=== PATIENT | male | born 1975 | race Caucasian/White ===

== ENCOUNTER → 2016-09-02 | Outpatient (CLI) | payer BC ==
--- NOTE | 2016-09-02 12:55 | DI ---
SPECT/CT C-SPINE W/O CONTRAST,09/02/2016 9:15 AM: Clinical History: Cervical spondylosis Previous Exam: MRI cervical spine performed August 03, 2016 and MRI lumbar spine performed May 09, 2016 Radiopharmaceutical: 32.5 mCi of technetium 99m MDP were administered intravenously. Findings: Multiple CT images are obtained from the base of the skull to the mid thighs without contrast. These images are merged with SPECT images obtained from the base of the skull through the upper lower extre mities as well.. The SPECT images are obtained 2 hours after the administration of the radiopharmaceu tical. Skull base: The skull base is unremarkable. There is no abnormally increased activity within the skul l base. The paranasal sinuses are unremarkable. There are mild diffuse degenerative changes of the cervical spine. The glenohumeral joints and the acromioclavicular joints are unremarkable. The scapula is unremarkable. Motion artifact of the chest limits evaluation, but there is no evidence of infiltrate nor effusion. Visualized portions of the thyroid are unremarkable. The urinary bladder is unremarkable. The gallbladder, liver, spleen, pancreas and adrenals are unremarkable. The appendix is also unremarkable. Moderate stool seen throughout the colon. The pelvis and hips demonstrate no evidence of increased uptake. The cervical spine, thoracic spine and lumbar spine demonstrate no focal increased uptake. There is normal signal within the excreted urine. There is mild increased uptake within the posterior articulating facets of the lower lumbar spine whi ch are symmetric and most consistent with mild degenerative facet arthropathy. Impression: No focal area of intense increased uptake to explain cervicalgia or back pain.
== END ==
LOC: NM 07:21
PROVIDERS: ATTEND Physician Assistant
DX: M47.812 Spondylosis without myelopathy or radiculopathy, cervical region (principal); M47.816 Spondylosis without myelopathy or radiculopathy, lumbar region; M54.6 Pain in thoracic spine
CPT/HCPCS: 72125; 72128; 72131; A9503

== ENCOUNTER → 2016-09-30 | Outpatient (CLI) | payer BC ==
--- NOTE | 2016-10-02 22:34 | DI ---
MRI PELVIS W/WO JOANNA,09/30/2016 8:56 AM: Clinical History: Foraminal stenosis of the lumbosacral region Previous Exam: None at this facility. Findings: Multiplanar MR images are obtained through the lumbosacral region both before and after the intraveno us administration of 20 mL of OptiMARK. Images are obtained through the pelvis and the level of the m id thigh. The sacral plexus appears grossly normal and symmetric. There are small bilateral hydroceles. There is normal skeletal structures. There is no abnormal enhancement. The urinary bladder is unremarkable. There are mild degenerative changes of the posterior articulating facets. Impression: No visible abnormality within the sacral plexus bilaterally.
== END ==
LOC: MRI 08:48
PROVIDERS: ATTEND Neurological Surgery
DX: M48.07 Spinal stenosis, lumbosacral region (principal)
CPT/HCPCS: 72197; 73720; A9579

== ENCOUNTER → 2016-11-04 | Outpatient (CLI) | payer BC ==
[2016-11-04 14:08] LABS: BASOPHILS # (AUTO) 0.05 10*3/UL; BASOPHILS % (AUTO) 0.4 % (0-1); HEMATOCRIT 45.2 % (42.0-52.0); HEMOGLOBIN 15.7 g/dL (14.0-18.0); IMM GRAN % (AUTO) 0.3 % (0-5); IMM GRAN# (AUTO) 0.03 10*3/UL; LYMPHOCYTES # (AUTO) 4.11 10*3/uL; LYMPHOCYTES % (AUTO) 35.4 % (10-50); MEAN CORPUSCULAR HEMOGLOBIN 30.1 PG (27-31); MEAN CORPUSCULAR HGB CONC 34.7 g/dL (33-37); MEAN PLATELET VOLUME 9.1 FL (7.4-12.2); MONOCYTES # (AUTO) 0.88 10*3/UL (0.3-0.8); MONOCYTES % (AUTO) 7.6 % (5-15); NEUTROPHILS # (AUTO) 6.41 10*3/UL; NEUTROPHILS % (AUTO) 55.3 % (50-80); RDW COEFFICIENT OF VARIATION 14.7 % (11.5-14.5); RED BLOOD COUNT 5.21 10^6/uL (4.70-6.10)
[2016-11-04 14:14] LABS: ASPARTATE AMINO TRANSFERASE 28 IU/L (21-57); BILIRUBIN,TOTAL 0.6 mg/dL (0.3-1.2); BLOOD UREA NITROGEN 10 mg/dL (7-22); BUN/CREATININE RATIO 14.28 (6-20); CALCIUM 9.4 mg/dL (8.7-10.7); CHLORIDE 107 meq/L (98-112); CREATININE 0.7 mg/dL (0.70-1.50); EST GLOMERULAR FILTRATION > 60 (>60 ml/min/1.73m(2)); GLUCOSE 123 mg/dL (78-110); SODIUM 141 meq/L (135-145); TOTAL PROTEIN 7.6 g/dL (6.1-8.0)
[2016-11-04 14:15] LABS: PLATELET MORPHOLOGY COMMENT NORMAL MORPHOLOGY (NORM)
[2016-11-04 14:32] LABS: HEMOGLOBIN A1C 7.32 % (4.2-6.0); MEAN BLOOD GLUCOSE (CALC) 157.756 mg/dL
[2016-11-04 14:51] LABS: LDL CHOLESTEROL,CALCULATED 138.8 mg/dL
== END ==
LOC: MOB LAB 11:46
PROVIDERS: ATTEND Family Medicine
DX: E11.9 Type 2 diabetes mellitus without complications (principal); Z79.4 Long term (current) use of insulin; E78.5 Hyperlipidemia, unspecified; F17.209 Nicotine dependence, unspecified, with unspecified nicotine-induced disorders
CPT/HCPCS: 36415; 80053; 80061; 83036; 85025

== ENCOUNTER → 2017-01-24 | Outpatient (CLI) | payer BC ==
[2017-01-24 09:49] LABS: BASOPHILS # (AUTO) 0.06 10*3/UL; BASOPHILS % (AUTO) 0.4 % (0-1); EOSINOPHILS # (AUTO) 0.35 10*3/UL; EOSINOPHILS % (AUTO) 2.4 % (0-8); HEMATOCRIT 46.2 % (42.0-52.0); HEMOGLOBIN 15.8 g/dL (14.0-18.0); LYMPHOCYTES # (AUTO) 5.16 10*3/uL; MEAN CORPUSCULAR HEMOGLOBIN 29.7 PG (27-31); MEAN CORPUSCULAR HGB CONC 34.2 g/dL (33-37); MEAN CORPUSCULAR VOLUME 86.8 FL (80-90); MEAN PLATELET VOLUME 8.6 FL (7.4-12.2); MONOCYTES # (AUTO) 1.06 10*3/UL (0.3-0.8); MONOCYTES % (AUTO) 7.3 % (5-15); NEUTROPHILS # (AUTO) 7.89 10*3/UL; NEUTROPHILS % (AUTO) 54.2 % (50-80); RED BLOOD COUNT 5.32 10^6/uL (4.70-6.10)
[2017-01-24 09:56] LABS: BLOOD UREA NITROGEN 12 mg/dL (7-22); CALCIUM 8.9 mg/dL (8.7-10.7); CHOL/HDL RATIO 6.71 RATIO (0-4.0); EST GLOMERULAR FILTRATION > 60 (>60 ml/min/1.73m(2)); HDL CHOLESTEROL 35 mg/dL (40-150); SERUM ALBUMIN 4.2 g/dL (3.5-4.8); SERUM CHOLESTEROL 235 mg/dL (120-200)
[2017-01-24 10:00] LABS: PLATELET MORPHOLOGY COMMENT NORMAL MORPHOLOGY (NORM); RBC MORPHOLOGY COMMENT NORMAL MORPHOLOGY (NORM); WBC MORPHOLOGY COMMENT NORMAL MORPHOLOGY (NORM)
[2017-01-24 10:32] LABS: HEMOGLOBIN A1C 6.86 % (4.2-6.0)
--- NOTE | 2017-01-24 11:43 | DI ---
HISTORY: Scleral icterus. TECHNIQUE: Sonographic images of the abdomen were obtained and submitted for interpretation. FINDINGS: There are multiple gallstones. The liver is enlarged with fatty infiltration. The spleen is unremarkable. There pancreas is within normal limits as seen. The left kidney is normal in appearance. IMPRESSION: 1. Cholelithiasis. 2. Enlarged, fatty liver. NOTE: The interpreting Radiologist was not present at the time of ultrasound interrogation.
== END ==
LOC: US 09:20
PROVIDERS: ATTEND Family Medicine
DX: E11.9 Type 2 diabetes mellitus without complications (principal); Z79.4 Long term (current) use of insulin; E78.5 Hyperlipidemia, unspecified; R17 Unspecified jaundice; I10 Essential (primary) hypertension; K80.20 Calculus of gallbladder without cholecystitis without obstruction; F17.200 Nicotine dependence, unspecified, uncomplicated
CPT/HCPCS: 36415; 76705; 80053; 80061; 83036; 85025

== ENCOUNTER 2017-02-05 12:21 | Emergency (ER) | payer BC ==
[2017-02-05] MEDS ORDERED: Pantoprazole Inj 40 MG in Normal Saline Flush 10 ML IVP ONE (12:35)
[2017-02-05] MEDS ORDERED: Sodium Chloride 0.9% 1,000 ML PRIMARY IV ONE (12:35)
[2017-02-05] MEDS ORDERED: NORMAL SALINE 10 ML SYRINGE FLUSH IVP PRN (12:35)
[2017-02-05] MEDS ORDERED: ONDANSETRON 4 MG/2 ML VIAL IVP ONE (12:35)
[2017-02-05] MEDS ORDERED: MORPHINE SULFATE 4 MG/1 ML IVP ONE (12:36)
--- NOTE | 2017-02-05 12:48 | PDOC ---
Abdomen/Flank HPI - General Chief Complaint: Abdomen Pain Stated Complaint: RUQ/EPIGASTRIC PAIN Date Seen by Provider: 02/05/17 Time Seen by Provider: 12:30 Source: POSITIVE: Patient Exam Limitations: POSITIVE: No limitations Nurse's Notes Reviewed & Considered: Yes - History of Present Illness Initial Comments: The patient is a 41-year-old male who presents to the emergency department with worsening abdominal pain. He states that he has been having some issues with mild right upper quadrant and epigastric abdominal pain for the past couple of weeks. He also thought at one point that his eyes were a little bit yellow. He ended up seeing his primary care provider and an ultrasound of his gallbladder revealed gallstones. He is actually scheduled to see Dr. Ramírez for surgical consultation later this week. He states that this morning after eating to breakfast burritos his pain intensified significantly. He has associated nausea without vomiting. He has not had any fevers or chills. He denies any change in bowel movements. - Patient Home Medications Home Medications: Home Medications Aspirin Chewable Tab 81 mg PO DAILY 10/18/15 Clonazepam 0.5 mg PO DAILY PRN #30 tab 04/21/16 Dapagliflozin Propanediol [Farxiga] 5 mg PO QD #30 tab 04/21/16 Ezetimibe [Zetia] 1 tab PO DAILY #30 tab 04/21/16 Lisinopril 1 tab PO DAILY #30 tab 04/21/16 Pantoprazole Sodium [Protonix] 1 tab PO DAILY #30 tab 04/21/16 Phenytoin Sodium Extended 4 tab PO BEDTIME #120 capsule 04/21/16 Pravastatin Sodium [Pravachol] 1 tab PO QHS #30 tab 04/21/16 Wirt, Insulin Disposable [Bd Ultra-Fine Pen Needle] 1 each MC QHS #1 box Insulin Glargine SoloStar Inj [Lantus Solostar Inj] 17 units SUBCUT QHS box 06/13 Hydrocodone Bit/Acetaminophen [[place] 5-325 Tablet] 1 tab PO Q6-8H #120 tab 01/20 Ondansetron Odt [Zofran Odt] 8 mg PO Q6H PRN #10 tab.rapdis 02/05/17 oxyCODONE/APAP 7.5/325 Tab [Percocet 7.5/325 Tab] 1 each PO Q6H PRN #15 tablet 02/05/17 - Patient Allergies Allergies/Adverse Reactions: Allergies Allergy/AdvReac Type Severity Reaction Status Date / Time oyster extract Allergy Severe Anaphylaxis Verified 02/05/17 12:32 Penicillins Allergy Severe Anaphylaxis Verified 02/05/17 12:32 tramadol AdvReac Intermediate seizures Verified 02/05/17 12:32 Past Medical History - heen HEENT History: Denies History Cardiovascular History: Hypertension, Hyperlipidemia Respiratory History: Other (please comment) Additional Respiratory History: SMOKER Gastrointestinal History: GERD, Hiatal Hernia Additional Gastrointestinal History: MASS ON BACK SIDE OF TONGUE (PATIENT REPORTS HE NEEDS SURGERY TO REMOVE IT) Genitourinary History: Denies History Endocrine History: Type 2 Diabetes (insulin) Additional Endocrine History: 1 Musculoskeletal History: Back Injury, Joint Pain, Other (please comment) Prosthesis or Implant: No Additional Musculoskeletal History: hx ruptured disk x 2, fall off roof. CHRONIC HIP PAIN. DJD Neurological History: Seizures Blood Disorders: Denies History Psychiatric History: Anxiety Disorders History of Sexually Transmitted Diseases: No Cancer History: Denies History In Past Year Been Physically Harmed or Verbally Threatened: No History of MDRO: No History of Other Communicable Diseases: No Tobacco Use: Current Every Day Smoker Alcohol Use: Rarely Substance Use Type: Marijuana Previous Surgical History: Yes Type / Date of Surgery: HEART CATH WITH STENT. MASS REMOVED IN HIS THROAT Anesthesia Reactions: No Malignant Hyperthermia: No Significant Family History: Asthma, Heart disease, Cancer, COPD, Diabetes Past Medical History Reviewed: Reviewed - No Changes ROS - Limitations ROS Limitations: No Limitations Constitution: DENIES: Chills, Fever Cardiovascular: REPORTS: Denies Cardiac Symptoms Respiratory: REPORTS: Denies Resp Symptoms Neurological: REPORTS: Denies Neuro Symptoms Gastrointestinal: REPORTS: Abdominal Pain, Nausea. DENIES: Vomitting, Black Stools, Bloody Stools Musculoskeletal: REPORTS: Back Pain (Chronic issue) Genitourinary: REPORTS: Denies Symptoms Eyes: REPORTS: Denies Symptoms ENT: REPORTS: Denies Symptoms Skin: DENIES: Rash Abdominal/Flank Pain PE - General Appearance General Appearance: POSITIVE: Alert, Cooperative, No Acute Distress - HEENT HEENT: POSITIVE: Head Inspection Nml, Eyes Inspection Nml, Ears Inspection Nml, Pharynx Inspect. Nml, Dry Mucous Membranes - Neck Neck: POSITIVE: Normal Inspection. NEGATIVE: Lymphadenopathy - Respiratory Respiratory: POSITIVE: No Respiratory Distress, Breath Sounds Normal - Cardiovascular Cardiovascular: POSITIVE: Regular Rate and Rhythm, Heart Sounds Normal Peripheral Pulses: Dorsalis-pedis (R): 2+, Dorsalis-pedis (L): 2+ - Abdomen Additional Abdominal Details: His abdomen is flat, he does have tenderness even to light palpation in the epigastric and right upper quadrants without guarding, no palpable mass, bowel sounds are present however somewhat hypoactive, he does have some generalized abdominal tenderness as well in the other quadrants. - Back Back: NEGATIVE: CVA Tenderness (R), CVA Tenderness (L) - Skin Skin: POSITIVE: Intact, No Rash Abdomen Progress - Results Reviewed by me Xrays/CTs/US Reviewed by me: Yes Discussed with Radiologist: Yes Radiology Findings: CT scan of her his abdomen and pelvis with IV contrast reveals a normal-appearing gallbladder, no acute intra-abdominal pathology per radiologist. Lab Results Reviewed: Yes Lab Results:: Laboratory Results 02/05/17 Range/Units 11:43 WBC 13.72 H (4.8-10.8) 10^3/uL RBC 5.58 (4.70-6.10) 10^6/uL Hgb 16.7 (14.0-18.0) g/dL Hct 47.6 (42.0-52.0) % MCV 85.3 (80-90) FL MCH 29.9 (27-31) PG MCHC 35.1 (33-37) g/dL RDW Std Deviation 45.1 (39-50) fL RDW Coeff of Katheryn 14.8 H (11.5-14.5) % Plt Count 310 (140-350) 10*3/uL MPV 8.7 (7.4-12.2) FL Immature Gran % (Auto) 0.4 (0-5) % Neut % (Auto) 63.6 (50-80) % Lymph % (Auto) 29.5 (10-50) % Scurry % (Auto) 5.5 (5-15) % Eos % (Auto) 0.9 (0-8) % Baso % (Auto) 0.1 (0-1) % Immature Gran # (Auto) 0.05 10*3/UL Neut # (Auto) 8.71 10*3/UL Lymph # (Auto) 4.05 10*3/uL [place] # (Auto) 0.76 (0.3-0.8) 10*3/UL Eos # (Auto) 0.13 10*3/UL Baso # (Auto) 0.02 10*3/UL WBC Morphology Comment Normal morphology (NORM) Plt Morphology Comment Normal morphology (NORM) RBC Morph Comment Normal morphology (NORM) Sodium 140 (135-145) meq/L Potassium 3.4 L (3.8-5.2) meq/L Chloride 110 (98-112) meq/L Carbon Dioxide 16 L (23-33) meq/L Anion Gap 14 (5-20) BUN 15 (7-22) mg/dL Creatinine 0.8 (0.70-1.50) mg/dL Estimated GFR > 60 (>60 ml/min/1.73m(2)) BUN/Creatinine Ratio 18.75 (6-20) Glucose 239 H (78-110) mg/dL Calculated Osmolality 298.0 H (267-292) mOsm/kg Calcium 9.1 (8.7-10.7) mg/dL Total Bilirubin 0.5 (0.3-1.2) mg/dL AST 27 (21-57) IU/L ALT 51 (21-72) IU/L Alkaline Phosphatase 107 (38-126) IU/L C-Reactive Protein 3.9 H (0.0-0.9) mg/dL Total Protein 7.5 (6.1-8.0) g/dL Albumin 4.4 (3.5-4.8) g/dL Globulin 3.1 (2.50-4.10) g/dL Albumin/Globulin Ratio 1.40 (1.3-2.0) mg/g Amylase 73 (30-110) U/L Lipase 73 (23-300) IU/L - Patient's Progress MDM / ED Course: An IV was established and the patient was given 1 L bolus of normal saline as well as morphine 4 mg IV, Zofran 4 mg IV and Protonix 40 mg IV. The patient's pain worsened again after CT scan he received Dilaudid 1 mg IV for pain. His pain subsequently improved significantly. Findings of current blood work and CT scan were discussed. His CT scan reveals no obvious acute intra-abdominal findings per radiologist. His blood work reveals normal liver enzymes and normal pancreatic enzymes. His white blood cell count is mildly elevated at 13, 000 however this appears to be chronically elevated and was 14,002 weeks ago. At this time his symptoms are most consistent with biliary colic. He does not appear to have any biliary obstruction or infection. He has an appointment to see Dr. Ramírez this week and prefers to follow-up with him as an outpatient. He was prescribed Percocet 7.5/325 which she can take one every 4- 6 hours as needed for pain and was given Zofran 8 mg every 6 hours as needed for nausea or vomiting. He was advised to follow a low fat low dairy diet. He will return to the emergency room if he develops increased pain, vomiting or dehydration, fever, any worsening or change in symptoms. - Consult Counseled: POSITIVE: Patient, RE: Lab Results, RE: Radiology Results, RE: DX, RE : Need for F/U Patient Care Time - Estimated PCT Patient Care Time (In Minutes): 35 Vital Signs - Recent Vital Signs Vital Signs: Vital Signs (Last 8 hours) Temp Pulse Resp BP Pulse Ox 02/05/17 12:35 97.8 F 92 20 131/102 98 - VS Reviewed Vital Signs Reviewed: Yes Discharge Clinical Impression: Biliary colic, Gallstones Discharge Disposition: Discharged to Home Condition: Stable Prescriptions / Orders: oxyCODONE/APAP 7.5/325 Tab [Percocet 7.5/325 Tab] 1 each PO Q6H PRN #15 tablet PRN Reason: Pain Ondansetron Odt [Zofran Odt] 8 mg PO Q6H PRN #10 tab.rapdis PRN Reason: Nausea / Vomiting Patient Instructions Given at Discharge: Biliary Colic (ED), Gallstones (ED) Additional Instructions: Your blood work appears normal other than a chronically elevated white blood cell count. The liver enzymes and pancreas enzymes all appeared normal. The CAT scan did not show any obvious infection in the gallbladder or any other findings. You do have known gallstones and the pain you are experiencing most likely represents gallbladder related pain. This may have been triggered by diet. Recommend eliminating dairy and rich fatty foods from her diet. You've been prescribed Percocet 7.5/325 which he can take one every 4-6 hours as needed for pain. In addition you have been prescribed Zofran 8 mg every 6 hours as needed for nausea. Return to the emergency room if increased abdominal pain, fevers or chills, vomiting or dehydration, any worsening or change in symptoms. Keep your appointment with Dr. Ramírez on , it may be reasonable to call his office in the morning to see if you can be seen sooner. Follow Up With: BERNY FERGUSON [Primary Care Provider] -
[2017-02-05 12:51] LABS: BASOPHILS # (AUTO) 0.02 10*3/UL; BASOPHILS % (AUTO) 0.1 % (0-1); EOSINOPHILS # (AUTO) 0.13 10*3/UL; EOSINOPHILS % (AUTO) 0.9 % (0-8); HEMATOCRIT 47.6 % (42.0-52.0); HEMOGLOBIN 16.7 g/dL (14.0-18.0); LYMPHOCYTES # (AUTO) 4.05 10*3/uL; MEAN CORPUSCULAR HEMOGLOBIN 29.9 PG (27-31); MEAN CORPUSCULAR HGB CONC 35.1 g/dL (33-37); MEAN CORPUSCULAR VOLUME 85.3 FL (80-90); MEAN PLATELET VOLUME 8.7 FL (7.4-12.2); MONOCYTES # (AUTO) 0.76 10*3/UL (0.3-0.8); MONOCYTES % (AUTO) 5.5 % (5-15); NEUTROPHILS # (AUTO) 8.71 10*3/UL; NEUTROPHILS % (AUTO) 63.6 % (50-80); RED BLOOD COUNT 5.58 10^6/uL (4.70-6.10)
[2017-02-05 12:52] LABS: PLATELET MORPHOLOGY COMMENT NORMAL MORPHOLOGY (NORM); RBC MORPHOLOGY COMMENT NORMAL MORPHOLOGY (NORM); WBC MORPHOLOGY COMMENT NORMAL MORPHOLOGY (NORM)
[2017-02-05 13:03] LABS: BLOOD UREA NITROGEN 15 mg/dL (7-22); BUN/CREATININE RATIO 18.75 (6-20); C-REACTIVE PROTEIN 3.9 mg/dL (0.0-0.9); CALCIUM 9.1 mg/dL (8.7-10.7); EST GLOMERULAR FILTRATION > 60 (>60 ml/min/1.73m(2)); LIPASE 73 IU/L (23-300); SERUM ALBUMIN 4.4 g/dL (3.5-4.8)
[2017-02-05 13:07] VITALS: RESP 20; TEMP 97.8
[2017-02-05] MEDS ORDERED: HYDROmorphone 2 MG/1 ML IVP ONE (13:26)
--- NOTE | 2017-02-05 14:51 | DI ---
CLINICAL HISTORY: Severe right upper quadrant abdominal pain since this morning. PREVIOUS EXAM: August 11, 2015. FINDINGS/TECHNIQUE: Multiple helically acquired CT images are obtained through the abdomen and pelvis following intravenous administration of contrast, and demonstrate clear lung bases. The liver and spleen are unremarkable. The stomach is not well evaluated but is grossly normal. The aorta and its major branches are normal. The adrenals and pancreas are unremarkable. The gallbladder is within normal limits. There is no evidence of hydronephrosis nor nephrolithiasis. There is no free air nor free fluid. The appendix is unremarkable. Limited evaluation of the colon and small bowel is unremarkable. There is n o evidence of obstruction. There is no pericolonic fat stranding to suggest colitis. The urinary bladder is unremarkable. The subcutaneous fat and anterior abdominal wall are unremarkable. The skeletal structures are unremarkable except for some mild degenerative changes involving the post erior articulating facets. IMPRESSION: 1. No acute intra-abdominal pathology.
[2017-02-05] MEDS ORDERED: oxyCODONE/APAP 7.5/325 Tab 1 TAB TAB PO SCH (15:00)
[2017-02-05] MEDS ORDERED: Ondansetron ODT Tab 8 MG TAB PO SCH (15:15)
== END 2017-02-05 15:30 | disposition home or self-care (01) ==
LOC: ER 12:21
DX: K80.50 Calculus of bile duct without cholangitis or cholecystitis without obstruction (principal); K80.80 Other cholelithiasis without obstruction; R10.13 Epigastric pain; R11.0 Nausea; I10 Essential (primary) hypertension; E78.5 Hyperlipidemia, unspecified; E11.9 Type 2 diabetes mellitus without complications; Z79.4 Long term (current) use of insulin; Z72.0 Tobacco use
CPT/HCPCS: 74177; 80053; 82150; 83690; 85025; 86140; 96361; 96374; 96375; 99283; J1170; J2270; J2405; J3490; J7030; Q0162

== ENCOUNTER 2017-02-10 09:57 | Day surgery (SDC) | payer BC ==
[~2017-02-10 09:57] MED LIST: AMPICILLIN/SULBACTAM 3 GM VIAL IV ONE; BUPIVACAINE 0.25% W/ EPI - 10 ML VIAL ONE; Iothalamate Meglumine 30 ML VIAL IV ONE; KETAMINE 100 MG/1 ML - 5 ML ONE; LIDOCAINE MPF 2% - 5 ML (20 MG/1 ML) ONE; LIDOCAINE W/ SODIUM BICARB 0.5 ML SYR ONE; Lactated Ringers 1,000 ML PRIMARY IV ONE; MIDAZOLAM 5 MG/1 ML ONE; ROCURONIUM 10 MG/1 ML - 5 ML VIAL IVP ONE; SUCCINYLCHOLINE CHLORIDE 20 MG/1 ML - 10 ML ONE; Sodium Chloride 0.9% 100 ML IV ONE; Sodium Chloride 0.9% vial 10 ML ONE; Sodium Chloride 0.9% vial 50 ML ONE; fentaNYL Inj 250 MCG/5 ML VIAL ONE
--- NOTE | 2017-02-10 10:21 | EKG ---
[address] [address] Measurements Intervals [place] Rate: 88 P: 66 WI: 131 QRS: 78 QRSD: 107 T: 35 QT: 355 QTc: 401 Interpretive Statements SINUS RHYTHM WITH SINUS ARRHYTHMIA Compared to ECG 10/18/2015 13:16:44 Sinus tachycardia no longer present Short WI interval no longer present T-wave abnormality no longer present Electronically Signed On 02-10-17 10:26:20 MDT by Mitchell Reyna [email or web address]
[2017-02-10] MEDS ORDERED: IPRATROPIUM/ALBUTEROL SULFATE 3 ML NEB NEB ONE ×2 (10:42→10:48)
[2017-02-10] MEDS ORDERED: MORPHINE SULFATE 2 MG/1 ML IVP PRN (11:58)
[2017-02-10] MEDS ORDERED: HYDROcodone-APAP 7.5 MG-325 MG TABLET PO PRN (11:58)
[2017-02-10] MEDS ORDERED: NORMAL SALINE 10 ML SYRINGE FLUSH IVP PRN ×2 (11:58→13:31)
[2017-02-10] MEDS ORDERED: ONDANSETRON 4 MG/2 ML VIAL IVP PRN ×2 (11:58→13:31)
[2017-02-10] MEDS ORDERED: Lactated Ringers 1,000 ML PRIMARY IV SCH (12:00)
[2017-02-10] MEDS ORDERED: ESMOLOL HCL 100 MG/10 ML VIAL ONE (12:17)
[2017-02-10] MEDS ORDERED: HYDROmorphone 2 MG/1 ML ONE ×2 (12:37→13:37)
[2017-02-10] MEDS ORDERED: SUGAMMADEX SODIUM 200 MG/2 ML VIAL IV ONE (12:57)
--- NOTE | 2017-02-10 13:08 | GEN.OPNOTE ---
Operative Note Surgery Date: 02/10/17 Preoperative Diagnosis: Cholelithiasis Postoperative Diagnosis: Cholelithiasis with chronic cholecystitis Procedure: Laparoscopic cholecystectomy with intraoperative cholangiogram Surgeon: Lee Ramírez MD Brand Ambassador Promotional Model: Goran Becker MD Anesthesia Provider: Sherrill Thomson CRNA Anesthesia Type: General Estimated Blood Loss (mL): 2 Fluids: 3 g of Unasyn. Lactated Ringer's please see anesthesia notes in EMR Pathology: Gallbladder Indications: Symptomatic cholelithiasis Findings: A lot of fat surrounding the gallbladder with what appeared be conically cystitis and cholelithiasis Complications: None Operative Summary: Patient was brought in the operating room. Placed in supine position. Given general anesthetic. Was prepped draped sterile fashion. Quarter percent Marcaine was infiltrated at all trocar sites. Small incision made below the umbilicus. Veress needle inserted pneumoperitoneum obtained. After adequate pneumoperitoneum a 10 mm trocar was placed using the Visiport. Under direct laparoscopic visualization a 10 mm trocar subxiphoid and 2 -5 mm in the midclavicular and midaxillary line. Appropriate instrument were placed. Gallbladder grasped at the fundus retracted over the liver edge. Gallbladder was grasped at Frederic's pouch. The cystic duct was dissected free. The cystic duct was clipped near the gallbladder. Intraoperative cholangiocatheter was placed through an angiocatheter. I then opened up the cystic duct with scissors. Intraoperative cardiogram catheter was placed. C-arm was brought in an intraoperative cholangiogram was then done with the aid of the C-arm. There is no evidence of obstruction of the common bile duct and proper anatomy was identified. The C-arm was removed. The cholangiogram was then removed. The cystic duct was doubly clipped and divided. Likewise the cystic artery was dissected free 3 hemoclips placed and divided. The gallbladder was dissected off liver's edge using electrocautery. The gallbladder was then removed through a subumbilical incision. The abdominal cavity was irrigated until clear. The trochars were removed. The umbilicus incision was closed with 0 Vicryl suture to the fascia. The skin was reapproximated using 4-0 Vicryl simple sutures. The remainder trocar sites were 5 mm defects we will close. The remainder skin incisions closed with 4-0 Vicryl. Steri-Strips applied sterile dressings applied. Patient transferred to recovery room in stable condition. Counts were correct
[2017-02-10] MEDS ORDERED: Lactated Ringers 1,000 ML PRIMARY IV ONE (13:16)
[2017-02-10] MEDS ORDERED: fentaNYL Inj 100 MCG/2 ML VIAL IVP PRN (13:31)
[2017-02-10] MEDS ORDERED: Ondansetron ODT Tab 8 MG TAB PO PRN (13:31)
[2017-02-10] MEDS ORDERED: KETOROLAC 15 MG/1 ML VIAL IVP PRN (13:31)
[2017-02-10] MEDS ORDERED: HYDROmorphone 2 MG/1 ML IVP PRN (13:31)
[2017-02-10] MEDS ORDERED: ATROPINE SULFATE 0.4 MG/1 ML VIAL IVP PRN (13:31)
[2017-02-10] MEDS ORDERED: KETOROLAC 30 MG/1 ML VIAL ONE (13:37)
[2017-02-10] MEDS ORDERED: LORazepam 2 MG/1 ML VIAL ONE (13:58)
[2017-02-10 14:47] VITALS: RESP 12
[2017-02-10 15:04] VITALS: TEMP 97.4
[2017-02-10] MEDS ORDERED: oxyCODONE/APAP 7.5/325 Tab 1 TAB TAB PO ONE ×2 (15:31→15:37)
== END 2017-02-10 16:05 | disposition home or self-care (01) ==
LOC: SDSC 09:57
PROVIDERS: ATTEND Surgery
DX: K80.10 Calculus of gallbladder with chronic cholecystitis without obstruction (principal)
CPT/HCPCS: 47563; 74300; 93005; 93010; 94640; A4216; J1885; J2704; J3010; J7620; Q9961; J0295; J0330; J1170; J2001; J2060; J2250; J7050; J7120

== ENCOUNTER → 2017-02-24 | Outpatient (CLI) | payer BC ==
--- NOTE | 2017-02-24 09:21 | EKG ---
[address] [address] Measurements Intervals [place] Rate: 65 P: 66 IN: 134 QRS: 81 QRSD: 92 T: 42 QT: 378 QTc: 389 Interpretive Statements SINUS RHYTHM WITH SINUS ARRHYTHMIA Compared to ECG 02/10/2017 10:19:15 No significant changes Electronically Signed On 02-24-17 10:13:05 MDT by Mitchell Reyna [email or web address]
[2017-02-24 09:52] LABS: BASOPHILS # (AUTO) 0.09 10*3/UL; BASOPHILS % (AUTO) 0.6 % (0-1); EOSINOPHILS % (AUTO) 3.1 % (0-8); HEMATOCRIT 49.2 % (42.0-52.0); LYMPHOCYTES # (AUTO) 4.22 10*3/uL; MEAN CORPUSCULAR HEMOGLOBIN 29.4 PG (27-31); MEAN CORPUSCULAR HGB CONC 34.6 g/dL (33-37); MONOCYTES # (AUTO) 1.19 10*3/UL (0.3-0.8); MONOCYTES % (AUTO) 7.3 % (5-15); NEUTROPHILS # (AUTO) 10.19 10*3/UL; NEUTROPHILS % (AUTO) 62.4 % (50-80); RED BLOOD COUNT 5.79 10^6/uL (4.70-6.10)
[2017-02-24 10:11] LABS: BLOOD UREA NITROGEN 15 mg/dL (7-22); BUN/CREATININE RATIO 18.75 (6-20); CALCIUM 9.6 mg/dL (8.7-10.7); EST GLOMERULAR FILTRATION > 60 (>60 ml/min/1.73m(2)); SERUM ALBUMIN 4.5 g/dL (3.5-4.8)
[2017-02-24 10:22] LABS: PLATELET MORPHOLOGY COMMENT NORMAL MORPHOLOGY (NORM); RBC MORPHOLOGY COMMENT NORMAL MORPHOLOGY (NORM); WBC MORPHOLOGY COMMENT NORMAL MORPHOLOGY (NORM)
--- NOTE | 2017-02-24 18:54 | DI ---
XR CXR 2VW PA/LAT,02/24/2017 8:54 AM: Clinical History: Chest pressure Previous Exam: October 18, 2015 Findings: PA and lateral views of the chest are obtained, and demonstrate clear lungs. The cardiomediastinum an d bony thorax are unremarkable. There is no infiltrate nor effusion. Impression: No acute disease.
== END ==
LOC: MOB LAB 08:59
PROVIDERS: ATTEND Family Medicine
DX: R07.89 Other chest pain (principal); R06.02 Shortness of breath; I10 Essential (primary) hypertension; E78.5 Hyperlipidemia, unspecified; F17.200 Nicotine dependence, unspecified, uncomplicated
CPT/HCPCS: 36415; 71020; 80053; 84484; 85025; 93005; 93010

== ENCOUNTER 2017-03-10 16:05 | Emergency (ER) | payer BC ==
[2017-03-10] MEDS ORDERED: HYDROcodone-APAP 5 MG -325 MG TABLET PO ONE (16:09)
--- NOTE | 2017-03-10 16:15 | PDOC ---
Hand / Wrist Injury HPI - General Chief Complaint: Upper Extremity Problem/Injury Stated Complaint: L hand injury Date Seen by Provider: 03/10/17 Time Seen by Provider: 16:10 Source: POSITIVE: Patient Exam Limitations: POSITIVE: No limitations Nurse's Notes Reviewed & Considered: Yes - History of Present Illness Initial Comments: Patient was in his normal state of health today, while working on his camper with a screw gun he ran a screw through his left fifth digit middle phalanges. He then unscrewed the screw out of his hand and came in for evaluation after placing a tourniquet around his finger. Denies any other injury patterns. Patient has good capillary refill and good sensations distally. Have you received a tetanus shot in the past 10 years?: Yes Body Location Affected: REPORTS: Upper Extremity (L) (Fifth finger, middle phalanges.) Timing: REPORTS: Abrupt Duration: 1/2 hour Severity: Moderate Location at Time of Onset: REPORTS: Home Context: REPORTS: Other (Screw through his finger.) Location of Injury: REPORTS: Left, 5th Finger Quality: REPORTS: "Pain" Modifying Factors: REPORTS: Movement, Rest Any Prior Injuries Related to Current Complaint?: No - Patient Home Medications Home Medications: Home Medications Aspirin Chewable Tab 81 mg PO DAILY 10/18/15 Clonazepam 0.5 mg PO DAILY PRN #30 tab 04/21/16 Dapagliflozin Propanediol [Farxiga] 5 mg PO QD #30 tab 04/21/16 Ezetimibe [Zetia] 1 tab PO DAILY #30 tab 04/21/16 Lisinopril 1 tab PO DAILY #30 tab 04/21/16 Pantoprazole Sodium [Protonix] 1 tab PO DAILY #30 tab 04/21/16 Phenytoin Sodium Extended 4 tab PO BEDTIME #120 capsule 04/21/16 Pravastatin Sodium [Pravachol] 1 tab PO QHS #30 tab 04/21/16 [place], Insulin Disposable [Bd Ultra-Fine Pen Needle] 1 each MC QHS #1 box Insulin Glargine SoloStar Inj [Lantus SoloStar Inj] 17 units SUBCUT QHS box 06/13 Cefuroxime Axetil [Cefuroxime] 500 mg PO BID #20 tab 02/24/17 Hydrocodone Bit/Acetaminophen [Imogene 5-325 Tablet] 1 tab PO Q6-8H #120 tab 02/24 - Patient Allergies Allergies/Adverse Reactions: Allergies Allergy/AdvReac Type Severity Reaction Status Date / Time oyster extract Allergy Severe Anaphylaxis Verified 03/10/17 16:13 Penicillins Allergy Severe Anaphylaxis Verified 03/10/17 16:13 tramadol AdvReac Intermediate seizures Verified 03/10/17 16:13 Past Medical History - heen HEENT History: Denies History Cardiovascular History: Hypertension, Previous [place], Hyperlipidemia Additional Cardiovasular History: HEART CATH AND STENTS 10/2014 Respiratory History: Other (please comment) Additional Respiratory History: SMOKER Gastrointestinal History: GERD, Gallbladder Disease, Hiatal Hernia Additional Gastrointestinal History: MASS ON BACK SIDE OF TONGUE (PATIENT REPORTS HE NEEDS SURGERY TO REMOVE IT 10/2014) Genitourinary History: Denies History Endocrine History: Type 2 Diabetes (insulin) Musculoskeletal History: Back Injury, Joint Pain, Other (please comment) Prosthesis or Implant: No Additional Musculoskeletal History: hx ruptured disk x 2, fall off roof. CHRONIC HIP PAIN. DJD Neurological History: Seizures Additional Neurological History: LAST SEIZURE 2 WEEKS AGO Blood Disorders: Denies History Psychiatric History: Anxiety Disorders History of Sexually Transmitted Diseases: No Cancer History: Denies History History of MDRO: No History of Other Communicable Diseases: No Alcohol Use: None Substance Use Type: Marijuana, Methamphetamines Previous Surgical History: Yes Type / Date of Surgery: HEART CATH WITH STENT 10/2014. MASS REMOVED IN HIS THROAT 10/2014. EGD Anesthesia Reactions: No Malignant Hyperthermia: No Significant Family History: Asthma, Heart disease, Cancer, COPD, Diabetes ROS - Limitations ROS Limitations: No Limitations Constitution: REPORTS: Denies Symptoms Cardiovascular: REPORTS: Denies Cardiac Symptoms Respiratory: REPORTS: Denies Resp Symptoms Neurological: REPORTS: Denies Neuro Symptoms Gastrointestinal: REPORTS: Denies GI Symptoms Endocrine: REPORTS: Denies Symptoms Musculoskeletal: REPORTS: Joint Pain (Pain left fifth finger middle phalanges) Genitourinary: REPORTS: Denies Symptoms Eyes: REPORTS: Denies Symptoms ENT: REPORTS: Denies Symptoms Skin: REPORTS: Denies Skin Symptoms Lympathic: REPORTS: Denies Lympathic Symptoms Immunologic: POSITIVE: Denies Symptoms Psychiatric: POSITIVE: Denies Psych Symptoms Hand / Wrist Injury Exam - General Appearance General Appearance: POSITIVE: Alert, Cooperative, Mild Distress - Extremities Upper Extremity: POSITIVE: No Evidence of FB, Soft Tissue Tenderness, Swelling, Limited ROM d/t Pain Neurovascular / Tendon: POSITIVE: Sensation Normal, Motor Normal, No Vascular Compromise, Limited Flexion Skin: POSITIVE: Warm, Dry - HEENT HEENT: POSITIVE: Head Inspection Nml, Eyes Inspection Nml, Ears Inspection Nml, Nose Inspection Nml, PERRL, EOMI - Neck / Back Neck/Back: POSITIVE: Normal Inspection, Painless ROM - Respiratory / CVS Respiratory / CVS: POSITIVE: No Respiratory Distress Hand / Wrist Injury Progress - Results Reviewed by me Xrays/CTs/US Reviewed by me: Yes Discussed with Radiologist: Yes - Patient's Progress Pain Medication Addressed: POSITIVE: Yes Re-Examine Time: 16:51 Status: POSITIVE: Improved MDM / ED Course: Patient was examined, x-ray was obtained of his left fifth finger. Patient received a Imogene, 5/325 mg. Findings: X-ray is a normal radiograph without bony abnormality and no retained metallic bodies. Assessment: Puncture wound, through and through, left fifth finger middle phalanges. Plan: Discharge home, Keflex for 5 days, Tylenol and ibuprofen as needed. Patient receives instructions in wound care, he is to keep his hand clean and dry. He is to return if he has purulent discharge increased pain or other concerns. - Consult Counseled: POSITIVE: Patient, Family, RE: Radiology Results, RE: DX, RE: Need for F/U Patient Care Time - Estimated PCT Patient Care Time (In Minutes): 20 Vital Signs - VS Reviewed Vital Signs Reviewed: Yes Discharge Clinical Impression: Open wound of hand Discharge Disposition: Discharged to Home Condition: Stable Patient Instructions Given at Discharge: Puncture Wound (ED)
--- NOTE | 2017-03-10 16:45 | DI ---
LEFT LITTLE FINGER, 03/10/2017 4:09 PM: Clinical History: Injury. A screw penetrated the left little finger. Previous Exam: None at this facility. 3 views are submitted. There is no acute soft tissue, osseous, or joint abnormality. No metallic fore ign body is present. No cortical fracture is identified. There is no intra-articular gas. Reading: Normal left little finger exam. No retained metallic foreign body is noted.
[2017-03-10 17:02] VITALS: RESP 18; TEMP 97.5
[2017-03-10] MEDS ORDERED: CEPHALEXIN 500 MG CAPSULE PO ONE (17:02)
[2017-03-10] MEDS ORDERED: BACITRACIN 0.9 GM PACKET OINT TOPICAL ONE (17:04)
== END 2017-03-10 17:15 | disposition home or self-care (01) ==
LOC: ER 16:05
DX: S61.237A Puncture wound without foreign body of left little finger without damage to nail, initial encounter (principal); E11.9 Type 2 diabetes mellitus without complications; Z79.4 Long term (current) use of insulin; I10 Essential (primary) hypertension; W29.8XXA Contact with other powered hand tools and household machinery, initial encounter
CPT/HCPCS: 73140; 99282; 99283